=== PATIENT | male | born 1975 | race Caucasian/White ===

== ENCOUNTER 2022-09-08 15:34 | Emergency (ER) | payer OTHER, SELFPAY ==
[2022-09-08] VITALS (7 sets, daily range): BP systolic 136–169; BP diastolic 90–110; PULSE 82–116; RESP 14–27; TEMP 37.5–37.8; O2SAT 94–99
[2022-09-08 16:23] LABS: Alanine Aminotransferase 45 U/L (6-50); Albumin Level 4.7 g/dL (3.5-5.1); Alkaline Phosphatase 55 U/L (38-126); Anion Gap 6 mmol/L (8-16); Aspartate Amino Transferase 34 U/L (17-59); Basophils Percent Auto 0.3 % (0.2-1.2); Blood Urea Nitrogen 15 mg/dL (9-20); Calcium 8.1 mg/dL (8.4-10.2); Carbon Dioxide 29 mmol/L (22-30); Chloride 98 mmol/L (98-107); Eosinophils Percent Auto 0.3 % (0-4.4); Estimated CRCL calculation 91 ml/min; Estimated Glomerular Filt Rate > 60; Glucose 107 mg/dL (65-110); Hematocrit 48.8 % (42.0-52.0); Hemoglobin 16.5 g/dL (14.0-18.0); Immature Granulocyte Absolute 0.02 K/mm3 (0.00-0.031); Immature Granulocyte Percent A 0.3 % (0-0.5); Lipase 30 U/L (23-300); Lymphocytes Percent Auto 6.6 % (18.3-44.2); Mean Corpuscular HGB Conc 33.8 g/dl (32-36); Mean Corpuscular Hemoglobin 32.4 pg (26-34); Mean Corpuscular Volume 95.9 fl (80-100); Mean Platelet Volume 10.4 fl (7.4-10.4); Monocytes Absolute Auto 0.4 K/mm3 (0.1-0.6); Monocytes Percent Auto 5.5 % (2.6-8.5); Neutrophils Absolute Auto 6.6 K/mm3 (1.3-6.7); Platelet Count Result 144 k/mm3 (150-375); Red Blood Count 5.09 M/mm3 (4.6-6.20); Sodium 133 mmol/L (137-145); White Blood Count 7.6 K/mm3 (4.5-10.0)
[2022-09-08 17:14] LABS: Appearance Urine Clear (Clear); Bilirubin Urine Negative (Negative); Blood Urine Trace-intact (Negative); Color Urine Yellow (Yellow); Glucose Urine UA Negative (Negative); Ketones Urine Negative (Negative); Leukocyte Esterase Ur Negative LEU/UL (Negative); Nitrate Urine Negative (Negative); Protein Urine Trace mg/dL (Negative)
[2022-09-08 17:23] LABS: Mucus Urine Rare /lpf; RBC Urine 0-2 /hpf (0-2); WBC Urine 0-3 /hpf
[2022-09-08] MEDS: ONDANSETRON INJ 4 MG/2 ML VIAL IV PUSH (17:25)
[2022-09-08] MEDS: LACTATED RINGERS 1,000 ML 999 ML IV CONT (17:26)
[2022-09-08 17:27] LABS: Add Urine Microscopic? YES
--- NOTE | 2022-09-08 18:43 | ED.NAVMDI ---
HPI - Nausea/Vomiting/Diarrhea General Chief complaint: Nausea/Vomiting/Diarrhea Stated complaint: vomiting, diarrhea Time Seen by Provider: 09/08/22 16:48 History of Present Illness HPI Narrative: 46-year-old male presenting with nausea, vomiting, diarrhea, also having headache, fevers and chills for the past day, his 13-year-old son also had similar symptoms a few days ago but his symptoms resolved. No focal numbness or weakness, no neck pain Related Data Allergies Allergy/AdvReac Type Severity Reaction Status Date / Time No Known Allergies Allergy Verified 09/08/22 16:52 Review of Systems Review of Systems: CONST: fever. HEENT: Runny nose C/V: No chest pain RESP: Cough GI: Reports abdominal pain, nausea, vomiting[, diarrhea] : No dysuria. M/S: No joint pain. SKIN: No rash. NEURO: [Headache without focal numbness or weakness] PSYCH: [No depression] [facility] Past Medical History Medical History (Updated 09/08/22 @ 18:50 by Zofia Mills MD) No significant past medical history Exam Narrative: EXAMINATION OF ORGAN SYSTEMS/BODY AREAS: Constitutional: Vital signs per nursing GENERAL:[No acute distress, non-toxic appearing.] HEAD: Normal with no signs of head trauma. EYES: EOMI, conjunctiva normal ENT: Hearing grossly intact LUNGS: Nonlabored breathing. HEART: Initially tachycardic ABD: [Soft], no focal tenderness but mildly tender to palpation worst in the left upper quadrant EXT: Normal range of motion SKIN: [No rashes or lesions.] NEURO: [Alert and oriented x 3. No gross focal sensory or strength deficits.] PSYCH: Normal affect Course Vital Signs Vital signs: Vital Signs Temperature 99.5 F 09/08/22 15:38 Pulse Rate 116 H 09/08/22 15:38 Respiratory Rate 16 09/08/22 15:38 Blood Pressure 166/110 H 09/08/22 15:38 Pulse Oximetry 99 09/08/22 15:38 Oxygen Delivery Room Air 09/08/22 15:38 Temperature 100.1 F H 09/08/22 16:49 Pulse Rate 95 09/08/22 18:21 Respiratory Rate 27 H 09/08/22 18:21 Blood Pressure 136/93 H 09/08/22 18:21 Pulse Oximetry 94 09/08/22 18:21 Oxygen Delivery Room Air 09/08/22 16:49 MDM - Nausea/Vomiting/Diarrhea MDM Narrative Medical decision making narrative: ED COURSE AND MEDICAL DECISION MAKING: This 46 with no medical history year old patient presents with symptoms most suggestive of viral syndrome. She has no respiratory distress, abdomen is soft with some mild tenderness to palpation worse in the left upper quadrant, no pain or tenderness to palpation in right upper quadrant or right lower quadrant. Patient is treated symptomatically with IV fluids, Zofran. Tylenol was ordered. On reevaluation, he is no longer feeling nauseous, she has not received his Tylenol yet for his headache. I have low concern for meningitis without any neck pain and with normal neurologic exam, he is agreeable to likely going home with expectant management once he gets his Tylenol, I will also try to p.o. challenge him with Maalox and Bentyl repeat abdominal exam does not show any new tenderness. Labs are within acceptable limits without any leukocytosis, elevated LFTs, lipase, or biliary labs. On re-eval, he states he is ready to go. I will discharge him with strict return precautions and expectant management w/ f/u to his PCP. Lab Data 09/08/22 15:48 09/08/22 15:48 Labs: Lab Results 09/08/22 09/08/22 09/08/22 Range/Units 15:48 15:48 17:01 WBC 7.6 (4.5-10.0) K/mm3 RBC 5.09 (4.6-6.20) M/mm3 Hgb 16.5 (14.0-18.0) g/dL Hct 48.8 (42.0-52.0) % MCV 95.9 (80-100) fl MCH 32.4 (26-34) pg MCHC 33.8 (32-36) g/dl RDW 13.0 (11.5-14.5) % Plt Count 144 L (150-375) k/mm3 MPV 10.4 (7.4-10.4) fl Immature Gran % (Auto) 0.3 (0-0.5) % Neut % (Auto) 87.0 H (45.5-73.1) % Lymph % (Auto) 6.6 L (18.3-44.2) % [place] % (Auto) 5.5 (2.6-8.5) % Eos % (Auto) 0.3 (0-4.4) % Baso %
[2022-09-08] MEDS: DICYCLOMINE HCL 10 MG CAPSULE 20 MG PO (19:13)
[2022-09-08] MEDS: MAG HYDROX/AL HYDROX/SIMETH 30 ML UDC PO (19:14)
[2022-09-08 19:27] LABS: Influenza A QL RT-PCR Negative (Negative); Influenza B QL RT-PCR Negative (Negative); RSV RNA, RT-PCR Negative (Negative); SARS-CoV-2 RNA PCR Negative
== END 2022-09-08 20:10 | disposition home or self-care (01) ==
PROVIDERS: Emergency Provider Emergency Medicine
DX: R11.2 Nausea with vomiting, unspecified (principal); R19.7 Diarrhea, unspecified; Z20.822 Contact with and (suspected) exposure to COVID-19
CPT/HCPCS: 36415; 80053; 81001; 83690; 85025; 87637; 96361; 96374; 96375; 99284; A9270; J0131; J2405; J7120